=== PATIENT | male | born 1960 | race African-American/Black ===

== ENCOUNTER 2017-08-28 16:17 | Emergency (ER) | payer MEDICARE, OTHER ==
[~2017-08-28] VITALS: Ht 157.5 cm; Wt 78.0 kg
[~2017-08-28 16:17] MED LIST: BACL20TA; DIAZ-90 PO; HYDR-906 PO; IBUP-1542 PO; NAPR-688 PO
[2017-08-28 16:21] VITALS: Ht 157.5 cm; Wt 78.0 kg
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
[2017-08-28] MEDS ORDERED: CEPH-443 PO (21:22)
[2017-08-28] MEDS ORDERED: SULF1TAB31 PO (21:22)
[2017-08-28] MEDS ORDERED: BACITRACIN 0.9 GM OINT TOP ONE (21:30)
[2017-08-28] MEDS ORDERED: CEFTRIAXONE 500 MG INJ IM ONE (21:30)
[2017-08-28 22:20] VITALS: BP 113/60; PULSE 66; RESP 18; TEMP 98.1
== END 2017-08-28 22:20 | disposition home or self-care (01) ==
LOC: E/R 16:17
DX: L89.101 Pressure ulcer of unspecified part of back, stage 1 (principal)
CPT/HCPCS: 96372; 99284; J0696

== ENCOUNTER 2018-06-04 13:19 | Emergency (ER) | END 2018-06-04 16:02 | disposition home or self-care (01) ==

== ENCOUNTER 2019-07-22 14:06 | Emergency (ER) | payer MEDICARE, OTHER ==
[~2019-07-22] VITALS: Ht 172.7 cm; Wt 72.7 kg
[~2019-07-22 14:06] MED LIST changes: +CEPH-443 PO; -DIAZ-90 PO; +DIAZ5TAB PO; +DOXY100T20 PO; +HYDR-4011 PO; -HYDR-906 PO; +SULF1TAB31 PO
[2019-07-22 14:22] VITALS: BP 125/84; PULSE 58; RESP 18; Ht 172.7 cm; Wt 72.7 kg
== END 2019-07-22 15:26 | disposition home or self-care (01) ==
LOC: FTE 14:06 → E/R 15:26
DX: N30.00 Acute cystitis without hematuria (principal)
CPT/HCPCS: 99283